=== PATIENT | female | born 1960 | race Caucasian/White ===

== ENCOUNTER 2020-12-01 10:50 | Emergency (ER) | payer MEDICARE, OTHER, SELFPAY ==
[2020-12-01] VITALS (10 sets, daily range): BP systolic 137–157; BP diastolic 65–72; PULSE 53–88; RESP 15–32; TEMP 36.2; O2SAT 97–99; BMI 32.5
--- NOTE | 2020-12-01 11:16 | DI.US.S_ITS ---
PROCEDURE: US PERIPH VENOUS LOW EXTREM RT INDICATIONS: PAIN TECHNIQUE: Real-time imaging, as well as color and pulse Doppler interrogation, were performed of the lower extremity deep veins from the inguinal ligament to the popliteal fossa. COMPARISON: None. FINDINGS: The common femoral, femoral and popliteal veins are normally compressible, and free of intraluminal thrombus. Color and pulse Doppler demonstrate normal phasic intraluminal flow. There is normal augmentation response to distal compression maneuver. A medial popliteal cyst is seen measuring 6.9 x 1.8 x 3.7 cm. IMPRESSION: 1. No sonographic evidence of deep venous thrombosis in the right lower extremity. 2. Moderate medial popliteal cyst. Dictated by: Gil Jaramillo M.D. on 12/01/2020 at 12:08 Approved by: Gil Jaramillo M.D. on 12/01/2020 at 12:09
--- NOTE | 2020-12-01 11:28 | ED.EXTPRO ---
HPI - Extremity Problem <Nenita Wyatt, [employer]-BC - Last Filed: 12/01/20 14:31> General Chief complaint: Extremity Problem,Nontraumatic Stated complaint: right leg swelling/pain Time Seen by Provider: 12/01/20 10:53 Source: patient and family Mode of arrival: Ambulatory Limitations: no limitations History of Present Illness HPI Narrative: The patient is a 59-year-old female current everyday smoker with history of antiphospholipid syndrome hand blood clots who presents with a chief complaint of pain and swelling of her right lower leg after a flight 6 weeks ago. She states that her leg was very swollen after a flight which has improved. She has been able to come to the emergency department to get evaluated as she is on [facility]. She states that she is taking Xarelto as instructed. However she is still concerned about a blood clot in her lower leg after her flight from [place] 6 weeks ago. She has also noticed some episodes of dizziness over the past week or so, worse when she gets up. She states that she feels improved when she sits down or puts her feet up. She states the dizziness only lasts a few seconds at times. She states she is eating and drinking, though notes that she is drinking a lot of caffeine. She later admits to drinking 3 pots of coffee per day at least. She states sometimes she does not eat with her coffee, but she feels like she drinks at all the time. She denies any chest pain or shortness of breath. She states that she has been under lot of stress lately, especially with some loss to the family. Related Data Home Medications Medication Instructions Recorded Confirmed Metformin Hydrochloride 1,000 mg PO BID #0 04/14/10 (Glucophage) Benazepril Hydrochloride (LOTENSIN) 5 mg PO AMINS #0 11/10/12 WARFARIN SODIUM (JANTOVEN~) 3 mg PO QDAY #0 11/10/12 aripiprazole [Abilify] 10 mg PO AMINS #0 11/10/12 citalopram 20 mg PO AMINS #0 11/10/12 enoxaparin [Lovenox] 150 mg SQ AMINS #0 11/10/12 lamotrigine [Lamictal] 100 mg PO BID #0 11/10/12 pregabalin [Lyrica] 150 mg PO BID #4 11/10/12 ropinirole [Requip] 1 mg PO HS #0 11/10/12 rosuvastatin [Crestor] 10 mg PO HS #0 11/10/12 aspirin 81 mg PO QDAY #0 03/29/17 metoprolol succinate [Toprol XL] 25 mg PO QDAY #0 03/29/17 rivaroxaban [Xarelto] 20 mg PO QDAY #0 03/29/17 Previous Rx's Medication Instructions Recorded hydrocodone-acetaminophen 0 tab PO Q6HP PRN #15 tab 03/29/17 ondansetron [Zofran ODT] 4 mg SUBLINGUAL Q6HP PRN #20 odt 03/29/17 Allergies Allergy/AdvReac Type Severity Reaction Status Date / Time adhesive tape [ADHESIVE TAPE] Allergy Unknown Verified 12/01/20 10:36 STERI STRIPS Allergy Intermediate BLISTERS Uncoded 12/01/20 10:36 Review of Systems <BRITTANEY Bates - Last Filed: 12/01/20 14:31> Review of Systems Narrative: GENERAL: Denies chills, fatigue, malaise, fever, sweats. HEENT: Denies sinus pain, ear pain, sore throat, difficulty swallowing, dizziness. RESPIRATORY: Denies dyspnea, cough, wheezing, hemoptysis, sputum. CARDIOVASCULAR: Denies chest pain, palpitations, orthopnea, edema, GASTROINTESTINAL: Denies nausea, vomiting, abdominal pain, diarrhea, constipation, melena. : Denies dysuria, frequency, incontinence, hematuria, urinary retention. MUSCULOSKELETAL: See HPI SKIN: Denies rash, skin lesions, or other NEUROLOGIC: See HPI PSYCHIATRIC: No concerning psychosocial issues. 12 point review of systems is negative except for those stated above Patient History <BRITTANEY Bates - Last Filed: 12/01/20 14:31> Social History Smoking Status: Current every day smoker Smoking Status: Current every day smoker alcohol intake frequency: 0-2 drinks per day Substance Use Type: does not use Exam <BRITTANEY Bates - Last Filed: 12/01/20 14:31> Narrative Exam Narrative: GENERAL: This is a well-nourished, well-developed patient, in no acute distress HEAD: Atraumatic. Normocephalic. No temporal or scalp tenderness. EYES: Pupils equal round and reactive. Extraocular motions intact. No scleral icterus. No injection or drainage. ENT: Nose without bleeding, purulent drainage or septal hematoma. Throat without erythema, tonsillar hypertrophy or exudate. Uvula midline. Airway patent. Dry mucous membranes noted NECK: Trachea midline. No JVD or lymphadenopathy. Supple, nontender, no meningeal signs. CARDIOVASCULAR: Regular rate and rhythm RESPIRATORY: Clear to auscultation. Breath sounds equal bilaterally. No wheezes, rales, or rhonchi. No cough. No increased respiratory effort. No accessory muscle use. GASTROINTESTINAL: Abdomen soft, non-tender, nondistended. No hepato-splenomegaly, or palpable masses. No guarding. EXTREMITIES: No clubbing, cyanosis, or edema. No joint tenderness, effusion, or edema noted. BACK: Nontender without deformity or crepitance. No flank tenderness. NEURO: AOx3. Interactive. Age appropriate. SKIN: No rash or erythema on visible skin. Initial Vital Signs Initial Vital Signs: Vital Signs Temperature 97.1 F L 12/01/20 10:50 Pulse Rate 88 12/01/20 10:50 Respiratory Rate 17 12/01/20 10:50 Blood Pressure 157/72 H 12/01/20 10:50 Pulse Oximetry 99 12/01/20 10:50 <Nenita Funez DO - Last Filed: 12/01/20 18:38> Initial Vital Signs Initial Vital Signs: Vital Signs Temperature 97.1 F L 12/01/20 10:50 Pulse Rate 88 12/01/20 10:50 Respiratory Rate 17 12/01/20 10:50 Blood Pressure 157/72 H 12/01/20 10:50 Pulse Oximetry 99 12/01/20 10:50 Scores <TRINIDAD Bates - Last Filed: 12/01/20 14:31> GCS Serjio coma scale eye opening: Spontaneous Serjio coma scale verbal response: Orientated Serjio coma scale motor response: Obey commands Jeddo coma scale total score: 15 Course <TRINIDAD Bates - Last Filed: 12/01/20 14:31> Orders Ordered: ED Orders 12/01/20 11:16 US periph venous low extrem rt Stat EKG-12 Lead Stat 12/01/20 11:47 Complete Blood Count AUTO DIFF Stat Comprehensive Metabolic Panel Stat Magnesium Stat NT-proBNP (BNP-Adult 18+) Stat Prothrombin Time INR Stat Troponin I Stat Discontinued Medications Sodium Chloride (Normal Saline 0.9%) 1,000 mls @ 1,000 mls/hr IV BOLUS ONE Stop: 12/01/20 12:17 Last Infusion: 12/01/20 12:59 Dose: 0 mls/hr Documented by: Admin: 12/01/20 11:57 Dose: 1,000 mls/hr Documented by: DIANA Sodium Chloride (Normal Saline 0.9%) 1,000 mls @ 1,000 mls/hr IV BOLUS ONE Stop: 12/01/20 12:15 Last Admin: 12/01/20 13:13 Dose: Not Given Documented by: JARAD Vital Signs Vital signs: Vital Signs - 8 hr 12/01/20 10:50 12/01/20 11:39 12/01/20 11:40 Temperature 97.1 F L Pulse Rate 88 59 L 57 L Pulse Rate [Orthostatic Lying] Pulse Rate [Orthostatic Sitting] Pulse Rate [Orthostatic Standing] Respiratory Rate 17 32 H 24 Blood Pressure 157/72 H 156/67 H Blood Pressure [Orthostatic Lying] Blood Pressure [Orthostatic Sitting] Blood Pressure [Orthostatic Standing] Pulse Oximetry 99 99 99 12/01/20 12:00 12/01/20 12:30 12/01/20 12:31 Temperature Pulse Rate 54 L 55 L 55 L Pulse Rate [Orthostatic Lying] Pulse Rate [Orthostatic Sitting] Pulse Rate [Orthostatic Standing] Respiratory Rate 17 16 28 H Blood Pressure 147/67 H 137/65 Blood Pressure [Orthostatic Lying] Blood Pressure [Orthostatic Sitting] Blood Pressure [Orthostatic Standing] Pulse Oximetry 97 98 97 12/01/20 12:55 12/01/20 12:56 12/01/20 12:57 Temperature Pulse Rate 59 L 59 L Pulse Rate [Orthostatic Lying] 53 L Pulse Rate [Orthostatic Sitting] 61 Pulse Rate [Orthostatic Standing] 59 L Respiratory Rate 17 24 Blood Pressure 142/66 H 138/66 Blood Pressure [Orthostatic Lying] 137/65 Blood Pressure [Orthostatic Sitting] 142/66 H Blood Pressure [Orthostatic Standing] 138/66 Pulse Oximetry 99 97 12/01/20 13:00 Temperature Pulse Rate Pulse Rate [Orthostatic Lying] Pulse Rate [Orthostatic Sitting] Pulse Rate [Orthostatic Standing] Respiratory Rate 15 Blood Pressure 137/70 Blood Pressure [Orthostatic Lying] Blood Pressure [Orthostatic Sitting] Blood Pressure [Orthostatic Standing] Pulse Oximetry 98 <Nenita Funez, - Last Filed: 12/01/20 18:38> Orders Ordered: ED Orders 12/01/20 11:16 US periph venous low extrem rt Stat EKG-12 Lead Stat 12/01/20 11:47 Complete Blood Count AUTO DIFF Stat Comprehensive Metabolic Panel Stat Magnesium Stat NT-proBNP (BNP-Adult 18+) Stat Prothrombin Time INR Stat Troponin I Stat Discontinued Medications Sodium Chloride (Normal Saline 0.9%) 1,000 mls @ 1,000 mls/hr IV BOLUS ONE Stop: 12/01/20 12:17 Last Infusion: 12/01/20 12:59 Dose: 0 mls/hr Documented by: Admin: 12/01/20 11:57 Dose: 1,000 mls/hr Documented by: DIANA Sodium Chloride (Normal Saline 0.9%) 1,000 mls @ 1,000 mls/hr IV BOLUS ONE Stop: 12/01/20 12:15 Last Admin: 12/01/20 13:13 Dose: Not Given Documented by: JARAD Vital Signs Vital signs: Vital Signs - 8 hr 12/01/20 10:50 12/01/20 11:39 12/01/20 11:40 Temperature 97.1 F L Pulse Rate 88 59 L 57 L Pulse Rate [Orthostatic Lying] Pulse Rate [Orthostatic Sitting] Pulse Rate [Orthostatic Standing] Respiratory Rate 17 32 H 24 Blood Pressure 157/72 H 156/67 H Blood Pressure [Orthostatic Lying] Blood Pressure [Orthostatic Sitting] Blood Pressure [Orthostatic Standing] Pulse Oximetry 99 99 99 12/01/20 12:00 12/01/20 12:30 12/01/20 12:31 Temperature Pulse Rate 54 L 55 L 55 L Pulse Rate [Orthostatic Lying] Pulse Rate [Orthostatic Sitting] Pulse Rate [Orthostatic Standing] Respiratory Rate 17 16 28 H Blood Pressure 147/67 H 137/65 Blood Pressure [Orthostatic Lying] Blood Pressure [Orthostatic Sitting] Blood Pressure [Orthostatic Standing] Pulse Oximetry 97 98 97 12/01/20 12:55 12/01/20 12:56 12/01/20 12:57 Temperature Pulse Rate 59 L 59 L Pulse Rate [Orthostatic Lying] 53 L Pulse Rate [Orthostatic Sitting] 61 Pulse Rate [Orthostatic Standing] 59 L Respiratory Rate 17 24 Blood Pressure 142/66 H 138/66 Blood Pressure [Orthostatic Lying] 137/65 Blood Pressure [Orthostatic Sitting] 142/66 H Blood Pressure [Orthostatic Standing] 138/66 Pulse Oximetry 99 97 12/01/20 13:00 Temperature Pulse Rate Pulse Rate [Orthostatic Lying] Pulse Rate [Orthostatic Sitting] Pulse Rate [Orthostatic Standing] Respiratory Rate 15 Blood Pressure 137/70 Blood Pressure [Orthostatic Lying] Blood Pressure [Orthostatic Sitting] Blood Pressure [Orthostatic Standing] Pulse Oximetry 98 MDM - Extremity (Nontraumatic) <DEBBIE Bates-BC - Last Filed: 12/01/20 14:31> Lab Data Result diagrams: 12/01/20 11:47 12/01/20 11:47 Labs: Lab Results 12/01/20 12/01/20 12/01/20 Range/Units 11:47 11:47 11:47 WBC 6.3 (4.5-11.0) X10^3/uL RBC 4.92 (4.0-5.2) X10^6/uL Hgb 14.3 (12.0-16.0) g/dL Hct 42.5 (36-46) % MCV 86.4 (80-100) fL MCH 29.0 (26-34) PG MCHC 33.6 (30-36) % RDW 13.8 (11.6-14.8) % Plt Count 193 (150-400) X10^3/uL Neut % (Auto) 54.0 (50-75) % Lymph % (Auto) 39.2 (25-40) % Pope % (Auto) 5.7 (3-14) % Eos % (Auto) 0.3 L (2-4) % Baso % (Auto) 0.8 (0-2) % Neut # (Auto) 3400 (1754-4248) /uL Lymph # (Auto) 2500 (5918-7769) /uL Pope # (Auto) 400 (0-900) /uL Eos # (Auto) 0 (0-450) /uL Baso # (Auto) 0 (0-100) /uL PT 11.6 (10.1-12.7) SECONDS INR 1.0 (0.9-1.3) Sodium 139 (137-145) mmol/L Potassium 3.8 (3.4-5.1) mmol/L Chloride 103 (98-107) mmol/L Carbon Dioxide 32 (22-32) mmol/L BUN 11 (7-17) mg/dL Creatinine 0.90 (0.52-1.04) mg/dL Estimated GFR > 60.0 (>60) mL/min BUN/Creatinine Ratio 12.2 (6-22) Glucose 88 (80-110) mg/dL Calcium 9.5 (8.4-10.2) mg/dL Magnesium 2.2 (1.6-2.3) mg/dL Total Bilirubin 0.2 (0.2-1.3) mg/dL AST 25 (14-36) IU/L ALT 17 (<35) IU/L Alkaline Phosphatase 71 (38-126) U/L Troponin I < 0.012 (0.01-0.034) ng/mL NT-Pro-B Natriuret Pep 73 (<125) pg/mL Total Protein 7.6 (6.3-8.2) g/dL Albumin 4.5 (3.5-5.0) g/dL Globulin 3.1 (1.7-4.1) g/dL Albumin/Globulin Ratio 1.5 (1.0-2.8) Urine Dip Bedside Urine Glucose Negative Bedside Urine Bilirubin - Negative Bedside Urine Ketone - Negative Urine Specific [place] 1.015 Bedside Urine Occult Blood - Negative Bedside Urine pH 6.0 Bedside Urine Protein - Negative Bedside Urine Urobilinogen - Negative Bedside Urine Nitrite - Negative Imaging Data US - DVT: Radiologist's Impression: [address] [place] [id number] ReportSigned Patient: Rea Henley COX BRANSON#: [id number]: 1960Acct:[id number]/Sex: 59 / FDate of Service: 12/01/20Loc: EDAccession Number: [id number] Procedure: US periph venous low extrem rt Ordering Provider: Nenita Wyatt- PROCEDURE: US PERIPH VENOUS LOW EXTREM RT INDICATIONS: PAIN TECHNIQUE: Real-time imaging, as well as color and pulse Doppler interrogation, were performed of the lower extremity deep veins from the inguinal ligament to the popliteal fossa. COMPARISON: None. FINDINGS: The common femoral, femoral and popliteal veins are normally compressible, and free of intraluminal thrombus. Color and pulse Doppler demonstrate normal phasic intraluminal flow. There is normal augmentation response to distal compression maneuver. A medial popliteal cyst is seen measuring 6.9 x 1.8 x 3.7 cm. IMPRESSION: 1. No sonographic evidence of deep venous thrombosis in the right lower extremity. 2. Moderate medial popliteal cyst. Dictated by: Gil Jaramillo M.D. on 12/01/2020 at 12:08 Approved by: Gil Jaramillo M.D. on 12/01/2020 at 12:09 ECG Data Attestation EKG: I personally reviewed and interpreted this ECG as follows: Interpretation: Sinus bradycardia. Ventricular rate 55. P.r. interval 198. QRS 104.Viewed by Dr Funez MDM Narrative Medical decision making narrative: The patient is a 59-year-old female with history of an antiphospholipid syndrome who presents with a chief complaint of pain and swelling of her right lower leg after a flight from [place] 6 weeks ago. Given her risk factors of previous history of clots, on blood thinners, taking hormones, ultrasound was taken to rule out DVT. This came back negative, however she does have a large Barillas's cyst which could contribute to her issues regarding her right lower leg. Regarding her dizziness, basic lab work came back within normal limits. She felt much improved after a L of fluid. The patient does admit to drinking 3 pots of coffee per day and not eating throughout the day as she is busy caring for her grandchildren. I discussed that this could be contributing to her issues and encouraged her to wean down her caffeine intake. Discussed decreasing slowly, using decaf coffee beans etcetera. Encouraged follow-up rest and pushing fluids. Offered to further evaluate her dizziness by head CT etcetera. However the patient and her daughter declined at this time and would rather focus on decreasing her caffeine intake and improving her hydration at this point time. Patient and daughter no questions or concerns upon discharge and state understanding return precautions as well as follow-up care. <Nenita Funez, DO - Last Filed: 12/01/20 18:38> Lab Data Labs: Lab Results 12/01/20 12/01/20 12/01/20 Range/Units 11:47 11:47 11:47 WBC 6.3 (4.5-11.0) X10^3/uL RBC 4.92 (4.0-5.2) X10^6/uL Hgb 14.3 (12.0-16.0) g/dL Hct 42.5 (36-46) % MCV 86.4 (80-100) fL MCH 29.0 (26-34) PG MCHC 33.6 (30-36) % RDW 13.8 (11.6-14.8) % Plt Count 193 (150-400) X10^3/uL Neut % (Auto) 54.0 (50-75) % Lymph % (Auto) 39.2 (25-40) % Pope % (Auto) 5.7 (3-14) % Eos % (Auto) 0.3 L (2-4) % Baso % (Auto) 0.8 (0-2) % Neut # (Auto) 3400 (9838-7661) /uL Lymph # (Auto) 2500 (9964-4059) /uL Pope # (Auto) 400 (0-900) /uL Eos # (Auto) 0 (0-450) /uL Baso # (Auto) 0 (0-100) /uL PT 11.6 (10.1-12.7) SECONDS INR 1.0 (0.9-1.3) Sodium 139 (137-145) mmol/L Potassium 3.8 (3.4-5.1) mmol/L Chloride 103 (98-107) mmol/L Carbon Dioxide 32 (22-32) mmol/L BUN 11 (7-17) mg/dL Creatinine 0.90 (0.52-1.04) mg/dL Estimated GFR > 60.0 (>60) mL/min BUN/Creatinine Ratio 12.2 (6-22) Glucose 88 (80-110) mg/dL Calcium 9.5 (8.4-10.2) mg/dL Magnesium 2.2 (1.6-2.3) mg/dL Total Bilirubin 0.2 (0.2-1.3) mg/dL AST 25 (14-36) IU/L ALT 17 (<35) IU/L Alkaline Phosphatase 71 (38-126) U/L Troponin I < 0.012 (0.01-0.034) ng/mL NT-Pro-B Natriuret Pep 73 (<125) pg/mL Total Protein 7.6 (6.3-8.2) g/dL Albumin 4.5 (3.5-5.0) g/dL Globulin 3.1 (1.7-4.1) g/dL Albumin/Globulin Ratio 1.5 (1.0-2.8) Urine Dip Bedside Urine Glucose Negative Bedside Urine Bilirubin - Negative Bedside Urine Ketone - Negative Urine Specific [place] 1.015 Bedside Urine Occult Blood - Negative Bedside Urine pH 6.0 Bedside Urine Protein - Negative Bedside Urine Urobilinogen - Negative Bedside Urine Nitrite - Negative ECG Data Attestation EKG: I personally reviewed and interpreted this ECG as follows: Prior ECG tracings: not available for review Interpretation: Sinus bradycardia rate of 54, P are 198, QRS of 104 and QTC of 464. No ST elevation depression appreciated. Discharge Plan Departure Patient Disposition: Home Clinical Impression: Dizziness, Caffeine addiction Barillas's cyst Qualifiers: Laterality: right Qualified Code(s): M71.21 - Synovial cyst of popliteal space [Barillas], right knee Instructions: Decreasing Your Caffeine Intake, The Highs and Lows of Caffeine, DI for Barillas Cyst, DI for Dizziness-Nonvertigo Activity Restrictions/Additional Instructions: Thank you for trusting us with your care today Today your lab work resulted well, as did your ultrasound There is no evidence of a deep vein thrombosis in your leg, rather there is evidence of what is called a Barillas's cyst. Please rest and push fluids. Please work to slowly decrease your caffeine intake. Please follow-up with primary care provider in the next few days. Please come back to the emergency department for any acute concerns such as chest pain, shortness of breath, concern of blood clot etcetera Prescriptions: No Action Metformin Hydrochloride (Glucophage) 1,000 mg PO BID Qty: 0 RF: 0 enoxaparin [Lovenox] 150 MG/1 ML syringe 150 mg SQ AMINS Qty: 0 RF: 0 pregabalin [Lyrica] 75 MG capsule 150 mg PO BID Qty: 4 RF: 0 ropinirole [Requip] 1 MG tablet 1 mg PO HS Qty: 0 RF: 0 citalopram 20 MG tablet 20 mg PO AMINS Qty: 0 RF: 0 Benazepril Hydrochloride (LOTENSIN) 5 mg PO AMINS Qty: 0 RF: 0 lamotrigine [Lamictal] 100 MG tablet 100 mg PO BID Qty: 0 RF: 0 aripiprazole [Abilify] 10 MG tablet 10 mg PO AMINS Qty: 0 RF: 0 rosuvastatin [Crestor] 10 MG tablet 10 mg PO HS Qty: 0 RF: 0 WARFARIN SODIUM (JANTOVEN~) 3 mg PO QDAY Qty: 0 RF: 0 aspirin 81 MG tablet,chewable 81 mg PO QDAY Qty: 0 RF: 0 metoprolol succinate [Toprol XL] 25 MG tablet extended release 24 hr 25 mg PO QDAY Qty: 0 RF: 0 rivaroxaban [Xarelto] 20 MG tablet 20 mg PO QDAY Qty: 0 RF: 0 hydrocodone-acetaminophen 5 MG/325 MG tablet 0 tab PO Q6HP PRNQty: 15 RF: 0 ondansetron [Zofran ODT] 4 MG tablet,disintegrating 4 mg Sublingual Q6HP PRNQty: 20 RF: 0 Referrals: Naz Rodriguez DO [Physician] - Michel Smith MD [Primary Care Provider] - <Nenita Funez DO - Last Filed: 12/01/20 18:38> [facility]ign [facility] Attestation: I was immediately available in the department for consultation. Documentation has been reviewed. Case was discussed and agree with plan.
[2020-12-01] MEDS: SODIUM CHLORIDE 0.9% 1,000 ML 1000 ML IV (11:57)
[2020-12-01 12:03] LABS: Add Manual Diff / Slide Review NO; Basophils Absolute Auto 0 /uL (0-100); Basophils Percent Auto 0.8 % (0-2); Eosinophils Absolute Auto 0 /uL (0-450); Eosinophils Percent Auto 0.3 % (2-4); Hematocrit 42.5 % (36-46); Hemoglobin 14.3 g/dL (12.0-16.0); Lymphocytes Absolute Auto 2500 /uL (1100-4500); Lymphocytes Percent Auto 39.2 % (25-40); Mean Corpuscular HGB Conc 33.6 % (30-36); Mean Corpuscular Volume 86.4 fL (80-100); Monocytes Absolute Auto 400 /uL (0-900); Monocytes Percent Auto 5.7 % (3-14); Neutrophils Absolute Auto 3400 /uL (1500-7000); Platelet Count 193 X10^3/uL (150-400); Red Blood Cell Count 4.92 X10^6/uL (4.0-5.2); Red Cell Distribution Width 13.8 % (11.6-14.8); White Blood Cell Count 6.3 X10^3/uL (4.5-11.0)
[2020-12-01 12:10] LABS: Prothrombin Time 11.6 SECONDS (10.1-12.7)
[2020-12-01 12:13] LABS: Alanine Aminotransferase 17 IU/L (<35); Albumin 4.5 g/dL (3.5-5.0); Albumin Globulin Ratio 1.5 (1.0-2.8); Alkaline Phosphatase 71 U/L (38-126); Aspartate Aminotransferase 25 IU/L (14-36); BUN Creatinine Ratio 12.2 (6-22); Bilirubin Total 0.2 mg/dL (0.2-1.3); Blood Urea Nitrogen 11 mg/dL (7-17); Calcium 9.5 mg/dL (8.4-10.2); Carbon Dioxide 32 mmol/L (22-32); Chloride 103 mmol/L (98-107); Estimated Glomerular Filt Rate > 60.0 mL/min (>60); Globulin 3.1 g/dL (1.7-4.1); Glucose 88 mg/dL (80-110); HEMOLYSIS < 15 (0-50); Magnesium 2.2 mg/dL (1.6-2.3); Potassium 3.8 mmol/L (3.4-5.1); Sodium 139 mmol/L (137-145); Total Protein 7.6 g/dL (6.3-8.2)
[2020-12-01 12:25] LABS: NT-proBNP (BNP-Adult 18+) 73 pg/mL (<125); Troponin I < 0.012 ng/mL (0.01-0.034)
== END 2020-12-01 13:23 | disposition home or self-care (01) ==
PROVIDERS: Emergency Provider Nurse Practitioner Family; PCP Family Medicine
DX: M71.21 Synovial cyst of popliteal space [Baker], right knee (principal); R42 Dizziness and giddiness; Z79.01 Long term (current) use of anticoagulants; F15.20 Other stimulant dependence, uncomplicated
CPT/HCPCS: 80053; 81003; 83735; 83880; 84484; 85025; 85610; 93005; 93010; 93971; 96360; 99283; 99284